=== PATIENT | male | born 2000 | race Caucasian/White ===

== ENCOUNTER 2020-05-29 15:58 | Emergency (ER) | payer OTHER ==
[~2020-05-29] VITALS: Ht 180.3 cm; Wt 68.2 kg
[2020-05-29 16:07] VITALS: BP 146/100; TEMP 98.3
[2020-05-29 17:54] VITALS: PULSE 107
== END 2020-05-29 17:54 | disposition home or self-care (01) ==
LOC: COL.ER 15:58
DX: S83.005A Unspecified dislocation of left patella, initial encounter (principal); Z88.0 Allergy status to penicillin; Y93.67 Activity, basketball; X50.1XXA Overexertion from prolonged static or awkward postures, initial encounter; Y92.39 Other specified sports and athletic area as the place of occurrence of the external cause
CPT/HCPCS: L1846